=== PATIENT | female | born 1955 | race Caucasian/White ===

== ENCOUNTER 2021-01-21 21:45 | Emergency (ER) | payer BC ==
[~2021-01-21 21:45] MED LIST: AMOX/K CLAV875 M1 PO; AMOXICILLIN500 MG OR; AMOXICILLIN500 MG PO; ASPIRIN81 MG PO; ATACAND8 MG OR; BAYER LOW81 MG PO; BUT/APAP/CA2; CHANTIX1 MG OR; CHANTIX1 MG PO; CRESTOR10 MG PO; DICLOFENAC75 MG PO; FLEXERIL OR; FLEXERIL10 MG PO; FORMULA E400 UNIT OR; LAMICTAL ODT100 MG OR; LAMICTAL100 M1 PO; LITHIUM CARB300 M1 OR; LITHIUM CARB300 M2 OR; LITHIUM CARB300 MG PO; LITHIUM CARB600 MG OR; LORTAB 5 OR; LORTAB 7.5 PO; MIRTAZAPINE15 M1 PO; NEURONTIN800 MG OR; PERCOCET1 TA4 PO; PROZAC40 MG OR; RANITIDINE300 M1 PO; RESPIRADOL; RISPERDAL2 MG PO; TOPAMAX100 MG PO; TRAMADOL HCL50 MG PO; TRAZODONE100 MG PO; TRAZODONE50 MG PO; ULTRAM50 M1 OR; ULTRAM50 M1 PO; XANAX XR0.5 MG OR; [UNRECOGNIZED DRUG - CODE] OR; [UNRECOGNIZED DRUG - REMARK]
[2021-01-21 22:58] LABS: HEMATOCRIT 42.9 % (37.0-47.0); IMMATURE GRANULOCYTES 0.2 % (0.0-5.0); MEAN CORPUSCULAR HGB 31.3 pG CALC (26.0-32.0); MEAN CORPUSCULAR HGB CONC 32.6 g/dL CAL (32.0-36.0); NEUT# 5.81 thou/uL (2.00-7.15); RED BLOOD COUNT 4.47 mill/uL (4.20-5.60); RED CELL DISTRI WIDTH 12.3 % (11.5-15.5)
[2021-01-21 23:09] LABS: ALBUMIN 4.2 g/dL (3.2-5.0); ALKALINE PHOSPHATASE 99 u/l (38-126); AMYLASE 85 u/l (30-110); ANION GAP 13 (6-22 (CALC)); BUN 11 mg/dL (8-23); BUN/CREATININE RATIO 16 (12-20 (CALC)); CARBON DIOXIDE 25 mmol/l (22-30); CHLORIDE 103 mmol/l (95-108); CREATININE 0.7 mg/dL (0.5-1.0); GFR > 60 ML/MIN (>=60 (CALC)); GFR FOR AFR.AMER. > 60 ML/MIN (>=60 (CALC)); LIPASE 465 u/l (23-300); POTASSIUM 3.9 mmol/l (3.5-5.1); SGOT/AST 25 u/l (9-36); SODIUM 137 mmol/l (137-146); TOTAL PROTEIN 7.5 g/dL (6.3-8.2)
[2021-01-21 23:16] LABS: BILIRUBIN, TOTAL 0.2 mg/dL (0.0-1.4)
[2021-01-21 23:21] LABS: MYOGLOBIN 27 ng/mL (0 - 62)
[2021-01-21] MEDS ORDERED: ZOLOFT100 MG PO (23:37)
[2021-01-21] MEDS ORDERED: XANAX0.25 MG PO (23:37)
[2021-01-22 01:32] LABS: URINE BILIRUBIN - DIPSTICK NEGATIVE (NEGATIVE); URINE BLOOD DIPSTICK NEGATIVE (NEGATIVE); URINE COLOR YELLOW; URINE GLUCOSE - DIPSTICK NEGATIVE (NEGATIVE); URINE KETONE NEGATIVE (NEGATIVE); URINE LEUK ESTERASE NEGATIVE (NEGATIVE); URINE PROTEIN - DIPSTICK NEGATIVE (NEG-TRACE); URINE SPECIFIC GRAVITY 1.015; URINE UROBILINOGEN - DIPSTICK 0.2 E.U./dL (0.2)
[2021-01-22 01:33] LABS: URINE NITRITE - DIPSTICK POSITIVE (Negative)
[2021-01-22 01:40] LABS: URINE BACTERIA MODERATE hpf; URINE SQUAMOUS EPITHELIAL CELL FEW EPI/hpf (0-FEW)
[2021-01-22] MEDS ORDERED: PREVACID30 M3 PO (02:40)
[2021-01-22 02:42] VITALS: BP 118/56
== END 2021-01-22 02:50 | disposition home or self-care (01) | DRG 392 ==
LOC: ED 21:45
PROVIDERS: Emergency Medicine
DX: K29.70 Gastritis, unspecified, without bleeding (principal); R82.71 Bacteriuria; F17.200 Nicotine dependence, unspecified, uncomplicated; Z20.822 Contact with and (suspected) exposure to COVID-19
CPT/HCPCS: Q9967; S0164

== ENCOUNTER 2021-03-17 13:16 | Emergency (ER) | payer BC ==
[~2021-03-17] VITALS: Ht 160 cm; Wt 60.0 kg
[~2021-03-17 13:16] MED LIST changes: +PREVACID30 M3 PO; +XANAX0.25 MG PO; +ZOLOFT100 MG PO
[2021-03-17] MEDS ORDERED: XANAX0.25 MG PO (13:58)
[2021-03-17 14:28] LABS: GFR > 60 ML/MIN (>=60 (CALC)); GFR FOR AFR.AMER. > 60 ML/MIN (>=60 (CALC))
[2021-03-17 14:31] LABS: HEMATOCRIT 51.2 % (37.0-47.0); HEMOGLOBIN 16.8 g/dl (12.0-16.0); IMMATURE GRANULOCYTES 0.1 % (0.0-5.0); MEAN CELL VOLUME 93.6 fL CALC (80.0-100.0); MEAN CORPUSCULAR HGB 30.7 pG CALC (26.0-32.0); MEAN CORPUSCULAR HGB CONC 32.8 g/dL CAL (32.0-36.0); NEUT# 4.56 thou/uL (2.00-7.15); RED BLOOD COUNT 5.47 mill/uL (4.20-5.60); RED CELL DISTRI WIDTH 12.1 % (11.5-15.5)
[2021-03-17 14:49] LABS: ALBUMIN 4.7 g/dL (3.2-5.0); ALKALINE PHOSPHATASE 104 u/l (38-126); ANION GAP 15 (6-22 (CALC)); BUN 11 mg/dL (8-23); BUN/CREATININE RATIO 20 (12-20 (CALC)); CARBON DIOXIDE 21 mmol/l (22-30); CHLORIDE 106 mmol/l (95-108); CREATININE 0.5 mg/dL (0.5-1.0); GFR > 60 ML/MIN (>=60 (CALC)); GFR FOR AFR.AMER. > 60 ML/MIN (>=60 (CALC)); LIPASE 112 u/l (23-300); POTASSIUM 4.6 mmol/l (3.5-5.1); SGOT/AST 34 u/l (9-36); SODIUM 137 mmol/l (137-146); TOTAL PROTEIN 8.4 g/dL (6.3-8.2)
[2021-03-17 15:46] LABS: URINE BILIRUBIN - DIPSTICK NEGATIVE (NEGATIVE); URINE BLOOD DIPSTICK NEGATIVE (NEGATIVE); URINE COLOR YELLOW; URINE GLUCOSE - DIPSTICK NEGATIVE (NEGATIVE); URINE KETONE NEGATIVE (NEGATIVE); URINE LEUK ESTERASE NEGATIVE (NEGATIVE); URINE PH 6.5 (4.5-8.0); URINE PROTEIN - DIPSTICK NEGATIVE (NEG-TRACE); URINE SPECIFIC GRAVITY <=1.005; URINE UROBILINOGEN - DIPSTICK 0.2 E.U./dL (0.2)
[2021-03-17 15:47] LABS: URINE NITRITE - DIPSTICK NEGATIVE (Negative)
[2021-03-17] MEDS ORDERED: ZOFRAN4 M1 PO (15:54)
[2021-03-17 16:00] VITALS: BP 136/70
== END 2021-03-17 16:54 | disposition home or self-care (01) | DRG 392 ==
LOC: ED 13:16
PROVIDERS: Family Medicine
DX: R10.12 Left upper quadrant pain (principal); F17.210 Nicotine dependence, cigarettes, uncomplicated; Z90.49 Acquired absence of other specified parts of digestive tract; Z20.822 Contact with and (suspected) exposure to COVID-19
CPT/HCPCS: Q9967

== ENCOUNTER 2022-12-16 13:58 | Observation (INO) | payer MEDICARE ==
[~2022-12-16] VITALS: Ht 160 cm; Wt 57.6 kg
[2022-12-16] VITALS (14 sets, daily range): BP systolic 114–142; BP diastolic 59–78
[~2022-12-16 13:58] MED LIST changes: +ZOFRAN4 M1 PO
[2022-12-16] MEDS ORDERED: TOPROL XL25 M1 PO (14:16)
[2022-12-16] MEDS ORDERED: PROZAC40 MG PO (14:16)
[2022-12-16] MEDS ORDERED: ATORVASTATIN CA10 MG PO (14:18)
[2022-12-16 14:50] LABS: BASO% 0.4 % (0-3); EOS% 1.5 % (0-8); IMMATURE GRANULOCYTES 0.1 % (0.0-5.0); LYMPH% 23.4 % (15-41); MEAN CORPUSCULAR HGB 30.7 pG CALC (26.0-32.0); MEAN CORPUSCULAR HGB CONC 32.4 g/dL CAL (32.0-36.0); MONO% 4.9 % (2-13); NEUT# 5.16 thou/uL (2.00-7.15); NEUT% 69.7 % (42-76); RED BLOOD COUNT 4.36 mill/uL (4.20-5.60); RED CELL DISTRI WIDTH 12.2 % (11.5-15.5)
[2022-12-16 14:53] LABS: HEMATOCRIT 41.4 % (37.0-47.0); HEMOGLOBIN 13.4 g/dl (12.0-16.0)
[2022-12-16 14:59] LABS: ALBUMIN 4.3 g/dL (3.2-5.0); ALKALINE PHOSPHATASE 70 u/l (38-126); ANION GAP 13 (6-22 (CALC)); BUN 11 mg/dL (8-23); BUN/CREATININE RATIO 18 (12-20 (CALC)); CARBON DIOXIDE 24 mmol/l (22-30); CHLORIDE 108 mmol/l (95-108); CREATININE 0.6 mg/dL (0.5-1.0); GFR FOR AFR.AMER. > 60 ML/MIN (>=60 (CALC)); GFR OTHER RACES > 60 ML/MIN (>=60 (CALC)); LIPASE 1983 u/l (23-300); POTASSIUM 4.2 mmol/l (3.5-5.1); SGOT/AST 26 u/l (9-36); SODIUM 140 mmol/l (137-146); TOTAL PROTEIN 7.5 g/dL (6.3-8.2)
[2022-12-16 15:01] LABS: BILIRUBIN, TOTAL 0.5 mg/dL (0.02-1.3)
[2022-12-16 15:31] LABS: URINE COLOR YELLOW
[2022-12-16 15:32] LABS: URINE BILIRUBIN - DIPSTICK NEGATIVE (NEGATIVE); URINE BLOOD DIPSTICK NEGATIVE (NEGATIVE); URINE GLUCOSE - DIPSTICK NEGATIVE (NEGATIVE); URINE KETONE Negative (NEGATIVE); URINE LEUK ESTERASE NEGATIVE (NEGATIVE); URINE NITRITE - DIPSTICK NEGATIVE (Negative); URINE PROTEIN - DIPSTICK NEGATIVE (NEG-TRACE); URINE SPECIFIC GRAVITY 1.015; URINE UROBILINOGEN - DIPSTICK 0.2 E.U./dL (0.2)
[2022-12-17] VITALS (9 sets, daily range): BP systolic 124–142; BP diastolic 59–70
[2022-12-17 06:03] LABS: BASO% 0.3 % (0-3); EOS% 3.6 % (0-8); HEMATOCRIT 42.1 % (37.0-47.0); HEMOGLOBIN 13.5 g/dl (12.0-16.0); IMMATURE GRANULOCYTES 0.1 % (0.0-5.0); LYMPH% 33.9 % (15-41); MEAN CELL VOLUME 95.7 fL CALC (80.0-100.0); MEAN CORPUSCULAR HGB 30.7 pG CALC (26.0-32.0); MEAN CORPUSCULAR HGB CONC 32.1 g/dL CAL (32.0-36.0); MONO% 6.1 % (2-13); NEUT# 4.91 thou/uL (2.00-7.15); RED BLOOD COUNT 4.4 mill/uL (4.20-5.60); RED CELL DISTRI WIDTH 12.4 % (11.5-15.5)
[2022-12-17 06:14] LABS: ALBUMIN 3.8 g/dL (3.2-5.0); ALKALINE PHOSPHATASE 59 u/l (38-126); ANION GAP 10 (6-22 (CALC)); BILIRUBIN, TOTAL 0.6 mg/dL (0.02-1.3); BUN 9 mg/dL (8-23); BUN/CREATININE RATIO 13 (12-20 (CALC)); CARBON DIOXIDE 25 mmol/l (22-30); CHLORIDE 108 mmol/l (95-108); CREATININE 0.7 mg/dL (0.5-1.0); GFR FOR AFR.AMER. > 60 ML/MIN (>=60 (CALC)); GFR OTHER RACES > 60 ML/MIN (>=60 (CALC)); POTASSIUM 4.2 mmol/l (3.5-5.1); SGOT/AST 22 u/l (9-36); SODIUM 139 mmol/l (137-146); TOTAL PROTEIN 6.4 g/dL (6.3-8.2)
[2022-12-17 10:48] LABS: AMYLASE 86 u/l (30-110); LIPASE 226 u/l (23-300)
[2022-12-18 04:00] VITALS: BP 130/63
[2022-12-18 04:32] VITALS: BP 130/63
[2022-12-18 05:16] LABS: BASO% 0.3 % (0-3); EOS% 1.9 % (0-8); HEMATOCRIT 37.1 % (37.0-47.0); HEMOGLOBIN 12.1 g/dl (12.0-16.0); MEAN CELL VOLUME 95.9 fL CALC (80.0-100.0); MEAN CORPUSCULAR HGB 31.3 pG CALC (26.0-32.0); MEAN CORPUSCULAR HGB CONC 32.6 g/dL CAL (32.0-36.0); MONO% 5.7 % (2-13); NEUT# 3.5 thou/uL (2.00-7.15); NEUT% 55.1 % (42-76); RED BLOOD COUNT 3.87 mill/uL (4.20-5.60); RED CELL DISTRI WIDTH 12.2 % (11.5-15.5)
[2022-12-18 05:31] LABS: ALBUMIN 3.3 g/dL (3.2-5.0); ALKALINE PHOSPHATASE 59 u/l (38-126); AMYLASE 58 u/l (30-110); ANION GAP 10 (6-22 (CALC)); BILIRUBIN, TOTAL 0.5 mg/dL (0.02-1.3); BUN 4 mg/dL (8-23); BUN/CREATININE RATIO 8 (12-20 (CALC)); CARBON DIOXIDE 23 mmol/l (22-30); CHLORIDE 109 mmol/l (95-108); CREATININE 0.6 mg/dL (0.5-1.0); GFR FOR AFR.AMER. > 60 ML/MIN (>=60 (CALC)); GFR OTHER RACES > 60 ML/MIN (>=60 (CALC)); POTASSIUM 3.9 mmol/l (3.5-5.1); SGOT/AST 20 u/l (9-36); SODIUM 137 mmol/l (137-146); TOTAL PROTEIN 5.6 g/dL (6.3-8.2)
[2022-12-18 06:35] VITALS: BP 131/60
[2022-12-18 10:40] VITALS: BP 124/59
[2022-12-18] MEDS ORDERED: CREON12000 UNT PO (13:59)
[2022-12-18] MEDS ORDERED: ZOFRAN4 MG/TAB PO (14:00)
[2022-12-18 14:15] VITALS: BP 140/56
== END 2022-12-18 15:41 | disposition home or self-care (01) ==
LOC: ED 13:58 → ED-I 14:49 → ED 17:49 → MS2 17:50
PROVIDERS: Nurse Practitioner; ADMIT Internal Medicine; ATTEND Internal Medicine
DX: K85.90 Acute pancreatitis without necrosis or infection, unspecified (principal); K86.1 Other chronic pancreatitis; I10 Essential (primary) hypertension; F41.9 Anxiety disorder, unspecified; F32.A Depression, unspecified; E78.5 Hyperlipidemia, unspecified; F17.200 Nicotine dependence, unspecified, uncomplicated; Z90.49 Acquired absence of other specified parts of digestive tract
CPT/HCPCS: J1650; Q9967; S0164

== ENCOUNTER 2024-01-05 21:58 | Emergency (ER) | payer MEDICARE ==
[2024-01-05] VITALS (7 sets, daily range): BP systolic 126–159; BP diastolic 58–111
[~2024-01-05] VITALS: Ht 160 cm; Wt 57.6 kg
[~2024-01-05 21:58] MED LIST changes: +ATORVASTATIN CA10 MG PO; +CREON12000 UNT PO; +PROZAC40 MG PO; +TOPROL XL25 M1 PO; +ZOFRAN4 MG/TAB PO
[2024-01-05] MEDS ORDERED: SODIUM CHLORIDE 0.9% 1,000 ML IV STA (22:14)
[2024-01-05] MEDS ORDERED: HYDROcodone POLISTIREX/CHLORPH 5 ML UDC PO ONE (22:15)
[2024-01-05] MEDS ORDERED: KETOROLAC TROMETHAMINE 30 MG/ML SDV IV ONE (22:15)
[2024-01-05] MEDS ORDERED: PROMETHAZINE HCL 25 MG/ML AMP IV ONE (22:15)
[2024-01-05 22:52] LABS: BASO% 0.5 % (0-3); EOS% 3.6 % (0-8); IMMATURE GRANULOCYTES 0.3 % (0.0-5.0); LYMPH% 34.6 % (15-41); MEAN CELL VOLUME 95.7 fL CALC (80.0-100.0); MEAN CORPUSCULAR HGB 31.9 pG CALC (26.0-32.0); MEAN CORPUSCULAR HGB CONC 33.3 g/dL CAL (32.0-36.0); MONO% 6.9 % (2-13); NEUT# 4.33 thou/uL (2.00-7.15); NEUT% 54.1 % (42-76); RED BLOOD COUNT 4.7 mill/uL (4.20-5.60); RED CELL DISTRI WIDTH 12.6 % (11.5-15.5)
[2024-01-05 23:08] LABS: CREATININE 0.8 mg/dL (0.5-1.0)
[2024-01-05 23:09] LABS: ALBUMIN 4.8 g/dL (3.2-5.0); BILIRUBIN, TOTAL 1.1 mg/dL (0.02-1.3)
[2024-01-05 23:10] LABS: POTASSIUM 4.9 mmol/l (3.5-5.1)
[2024-01-05] MEDS ORDERED: LACTATED RINGER'S 1,000 ML IV ONE (23:45)
[2024-01-06 00:16] VITALS: BP 151/68
[2024-01-06] MEDS ORDERED: PROMETHAZINE HY25 M1 PO (00:34)
[2024-01-06 00:41] VITALS: BP 151/68
[2024-01-06 00:48] LABS: URINE BILIRUBIN - DIPSTICK Negative (NEGATIVE); URINE BLOOD DIPSTICK Negative (NEGATIVE); URINE COLOR Yellow; URINE GLUCOSE - DIPSTICK Negative (NEGATIVE); URINE KETONE Negative (NEGATIVE); URINE LEUK ESTERASE Negative (NEGATIVE); URINE NITRITE - DIPSTICK Negative (Negative); URINE PROTEIN - DIPSTICK Negative (NEG-TRACE); URINE UROBILINOGEN - DIPSTICK 0.2 E.U./dL (0.2)
== END 2024-01-06 00:50 | disposition home or self-care (01) ==
LOC: ED 21:58
PROVIDERS: Family Medicine
DX: A08.4 Viral intestinal infection, unspecified (principal); I10 Essential (primary) hypertension; F17.200 Nicotine dependence, unspecified, uncomplicated; Z20.822 Contact with and (suspected) exposure to COVID-19; R07.89 Other chest pain

== ENCOUNTER 2024-04-21 10:32 | Observation (INO) | payer MEDICARE ==
[~2024-04-21] VITALS: Ht 160 cm; Wt 57.0 kg
[2024-04-21] VITALS (41 sets, daily range): BP systolic 119–157; BP diastolic 58–99
[~2024-04-21 10:32] MED LIST changes: +PROMETHAZINE HY25 M1 PO
[2024-04-21 10:56] LABS: BASO% 0.5 % (0-3); HEMATOCRIT 45.1 % (37.0-47.0); HEMOGLOBIN 15.1 g/dl (12.0-16.0); IMMATURE GRANULOCYTES 0.2 % (0.0-5.0); LYMPH% 28.2 % (15-41); MEAN CELL VOLUME 94.7 fL CALC (80.0-100.0); MEAN CORPUSCULAR HGB 31.7 pG CALC (26.0-32.0); MEAN CORPUSCULAR HGB CONC 33.5 g/dL CAL (32.0-36.0); MONO% 7.4 % (2-13); NEUT# 4.55 thou/uL (2.00-7.15); NEUT% 55.7 % (42-76); RED BLOOD COUNT 4.76 mill/uL (4.20-5.60); RED CELL DISTRI WIDTH 12.1 % (11.5-15.5)
[2024-04-21 11:08] LABS: ALBUMIN 4.4 g/dL (3.2-5.0); ALKALINE PHOSPHATASE 65 u/l (38-126); ANION GAP 15 (6-22 (CALC)); BUN 15 mg/dL (8-23); BUN/CREATININE RATIO 26 (12-20 (CALC)); CARBON DIOXIDE 22 mmol/l (22-30); CHLORIDE 106 mmol/l (95-108); CREATININE 0.6 mg/dL (0.5-1.0); ESTIMATED GFR 98 ML/MIN (>=90 (CALC)); POTASSIUM 4.1 mmol/l (3.5-5.1); SGOT/AST 41 u/l (9-36); SODIUM 138 mmol/l (137-146); TOTAL PROTEIN 7.7 g/dL (6.3-8.2)
[2024-04-21 11:24] LABS: BILIRUBIN, TOTAL 0.6 mg/dL (0.02-1.3)
[2024-04-21] MEDS ORDERED: ACETAMINOPHEN 325 MG/TAB PO PRN (14:10)
[2024-04-21] MEDS ORDERED: MAGNESIUM HYDROXIDE 30 ML UDC PO PRN (14:10)
[2024-04-21] MEDS ORDERED: ALPRAZOLAM1 M1 PO (15:43)
[2024-04-21] MEDS ORDERED: ALPRAZolam 1 MG/TAB PO PRN (15:45)
[2024-04-21] MEDS ORDERED: hydrALAZINE HCL 20 MG/ML VIAL(1 ML) IV PRN (15:50)
[2024-04-21] MEDS ORDERED: ENOXAPARIN SODIUM 40 MG/0.4 ML SYR SC SCH (21:00)
[2024-04-22 04:10] VITALS: BP 134/74
[2024-04-22 06:59] VITALS: BP 123/66
[2024-04-22 07:19] LABS: BASO% 0.8 % (0-3); EOS% 9.5 % (0-8); HEMATOCRIT 44.1 % (37.0-47.0); HEMOGLOBIN 14.7 g/dl (12.0-16.0); IMMATURE GRANULOCYTES 0.3 % (0.0-5.0); LYMPH% 28.7 % (15-41); MEAN CELL VOLUME 94.8 fL CALC (80.0-100.0); MEAN CORPUSCULAR HGB 31.6 pG CALC (26.0-32.0); MEAN CORPUSCULAR HGB CONC 33.3 g/dL CAL (32.0-36.0); MONO% 7.1 % (2-13); NEUT# 3.26 thou/uL (2.00-7.15); NEUT% 53.6 % (42-76); RED BLOOD COUNT 4.65 mill/uL (4.20-5.60); RED CELL DISTRI WIDTH 12.2 % (11.5-15.5)
[2024-04-22 07:43] LABS: ALBUMIN 4.1 g/dL (3.2-5.0); BILIRUBIN, TOTAL 0.5 mg/dL (0.02-1.3); CHOLESTEROL HDL RATIO 3.3 (<4.4 (CALC)); CREATININE 0.6 mg/dL (0.5-1.0); POTASSIUM 4.4 mmol/l (3.5-5.1); TOTAL PROTEIN 6.9 g/dL (6.3-8.2)
[2024-04-22 08:49] VITALS: BP 123/66
[2024-04-22] MEDS ORDERED: FLUoxetine HCL 10 MG/CAP PO SCH (09:00)
[2024-04-22] MEDS ORDERED: ATORVASTATIN CALCIUM 10 MG/TAB PO SCH (09:00)
[2024-04-22] MEDS ORDERED: METOPROLOL SUCCINATE 25 MG/TAB-TOPROL XL PO SCH (09:00)
[2024-04-22] MEDS ORDERED: ASPIRIN 81 LOW81 MG PO (09:44)
[2024-04-22] MEDS ORDERED: ATORVASTATIN CA40 MG PO (09:45)
[2024-04-22] MEDS ORDERED: NITROSTAT0.4 MG SL (09:45)
[2024-04-22] MEDS ORDERED: ASPIRIN EC 81 MG/TAB PO SCH (10:00)
[2024-04-22] MEDS ORDERED: ATORVASTATIN CALCIUM 40 MG/TAB PO SCH (21:00)
== END 2024-04-22 11:11 | disposition home or self-care (01) ==
LOC: ED 10:32 → ED-I 13:50 → ED 14:01 → ED-I 14:02 → MS2 20:32
PROVIDERS: Family Medicine; Nurse Practitioner Family; ADMIT Internal Medicine; ATTEND Internal Medicine
DX: R07.89 Other chest pain (principal); I10 Essential (primary) hypertension; I25.10 Atherosclerotic heart disease of native coronary artery without angina pectoris; F17.200 Nicotine dependence, unspecified, uncomplicated; F31.61 Bipolar disorder, current episode mixed, mild
CPT/HCPCS: G0378; J1650